=== PATIENT | male | born 1990 | race Caucasian/White ===

== ENCOUNTER → 2016-06-16 | Outpatient (CLI) | payer BC ==
--- NOTE | 2016-06-16 16:52 | DIAGNOSTIC IMAGING REPORT ---
THYROID ULTRASOUND HISTORY: Mass R22.1 COMPARISON: None. FINDINGS: Right lobe: Maximum dimension 7 cm. Right para median cystic process. Possibly of thyroglossal duct cyst is considered. Left lobe: Maximum dimension 5 cm. Isthmus: No nodules. IMPRESSION: 7 cm right para median cystic nodule. Possible thyroglossal duct cyst is considered. The remainder the thyroid is normal Electronically signed by: John Schultz M.D. 06/16/2016 4:51 PM Dictated Date/Time: 06/16/2016 4:49 PM
--- NOTE | 2016-06-16 16:53 | DIAGNOSTIC IMAGING REPORT ---
LEFT FOOT MIN 3 VIEWS ROUTINE CLINICAL HISTORY: S90.936A-PT TO ULTRA FIRST pain COMPARISON: None. DISCUSSION: The bones and joint spaces appear intact. There is no evidence of fracture, dislocation or bony disease. There is no evidence for soft tissue swelling. IMPRESSION: Negative study. Electronically signed by: John Schultz M.D. 06/16/2016 4:52 PM Dictated Date/Time: 06/16/2016 4:52 PM
[2016-06-16 18:12] LABS: BASO % 0.4 %; BASO ABS # 0.04 K/uL (0-0.2); COMPLETE YES; EOS % 1.7 %; HEMATOCRIT 43.6 % (42-52); IG% 0.1 %; LYMPH % 21.8 %; LYMPH ABS # 2.02 K/uL (1.2-3.4); MEAN CELL VOLUME 87.2 fL (80-100); MEAN CORPUSCULAR HEMOGLOBIN 30.4 pg (25-34); MEAN CORPUSCULAR HGB CONC 34.9 g/dl (32-36); MEAN PLATELET VOLUME 10.9 fL (7.4-10.4); MONO % 4.4 %; NEUT % 71.6 %; PLATELET COUNT 258 K/uL (130-400); WHITE BLOOD COUNT 9.28 K/uL (4.8-10.8)
== END | disposition home or self-care (01) ==
LOC: C.ULTR 16:14
PROVIDERS: ATTEND Family Medicine
DX: R22.1 Localized swelling, mass and lump, neck (principal); S90.93 Unspecified superficial injury of toes; X58.XXXA Exposure to other specified factors, initial encounter; E04.1 Nontoxic single thyroid nodule

== ENCOUNTER → 2016-06-21 | Outpatient (CLI) | payer BC | END | disposition home or self-care (01) | LOC: C.ULTR 09:40 | PROVIDERS: ATTEND Student in an Organized Health Care Education/Training Program | DX: E21.4 Other specified disorders of parathyroid gland (principal) ==